=== PATIENT | female | born 1955 | race African-American/Black ===

== ENCOUNTER 2020-11-09 15:53 | Emergency (ER) | payer BC ==
[2020-11-10 12:51] LABS: SARS-CoV-2 PCR by NAA Not Detected (NotDetected)
== END 2020-11-09 17:20 | disposition home or self-care (01) ==
LOC: MADERS 15:53
DX: R05 Cough (principal); J34.89 Other specified disorders of nose and nasal sinuses; Z20.822 Contact with and (suspected) exposure to COVID-19
CPT/HCPCS: 99283; U0003; U0005